=== PATIENT | male | born 1980 | race Caucasian/White ===

== ENCOUNTER 2017-08-25 08:58 | Emergency (ER) | payer OTHER, BC ==
[~2017-08-25] VITALS: Ht 188 cm; Wt 208.0 kg
[2017-08-25 09:13] VITALS: TEMP 36.8; Ht 188 cm; Wt 208.0 kg
--- NOTE | 2017-08-25 10:16 | EMERGENCY ROOM VISIT NOTE ---
History Report prepared by Ines: Kannan Knutson Under the Supervision of: Dr. Don Styles M.D. First contact with patient: 09:33 Chief Complaint: LEG PAIN,LEG INJURY Stated Complaint: PAIN IN LEFT LEG History of Present Illness The patient is a 36 year old white male with a past medical history of left ACL reconstruction surgery who presents to the ED with a cc of left lower extremity pain beginning about 1 week ago. Positive left ankle and foot pain. Negative loss of consciousness, headache, head trauma, fevers, chills, chest pain, shortness of breath, nausea, vomiting, abdominal pain, diarrhea, weakness, or numbness. About 1 week ago, the patient was at work and accidentally got his leg caught in some iron framework causing him to fall backward and twist his leg. He did not hit his head or lose consciousness. He then began to have some bruising and swelling to his left leg, ankle, and foot which worsened recently. He has been using ice and pain medications to try to relieve his pain. His pain is exacerbated with movement. Source of History: patient Onset: 1 week ago Position: leg Symptom Intensity: moderate Quality: ache Timing: worsening Modifying Factors (Worsening): movement Associated Symptoms: No LOC, No fevers, No chills, No headache, No chest pain, No SOB, No nausea, No vomiting, No abdominal pain, No diarrhea, No weakness, No numbness Note: He is also having some left foot and ankle pain. Review of Systems See HPI for pertinent positives and negatives. A total of ten systems were reviewed and were otherwise negative. Past Medical & Surgical Medical Problems: (1) No pertinent past medical history Family History Patient reports no known family medical history. Social History Smoking Status: Current Some Day Smoker Alcohol Use: none Drug Use: none Housing Status: lives with family Occupation Status: employed Current/Historical Medications No Active Prescriptions or Reported Meds Allergies Coded Allergies: Amoxicillin (Verified Adverse Reaction, Intermediate, N/V, 08/25/17) Physical Exam Vital Signs Date Time Temp Pulse Resp B/P (MAP) Pulse Ox O2 Delivery O2 Flow Rate FiO2 08/25/17 12:24 82 18 134/81 96 08/25/17 10:36 84 18 150/74 95 Room Air 08/25/17 09:13 36.8 81 18 162/102 97 Room Air Physical Exam GENERAL: Awake, alert, well-appearing, NAD HENT: Normocephalic, atraumatic. EYES: Normal conjunctiva. Sclera non-icteric. NECK: Supple. No nuchal rigidity. FROM. RESPIRATORY: CTAB, no rhonchi, wheezing, crackles CARDIAC: RRR, no MRG ABDOMEN: Soft, NTND, BS+ MSK: No chest wall TTP. Anterior incisional scar over the left way. Mild left sided medial TTP over the medial malleolus. Swelling the left ankle. DP pulses are present. NVI to the SP, DP, and Tib nerves. NEURO: GCS 15, CN 2-12 intact, moves all 4s on command SKIN: No rash or jaundice noted. Medical Decision & Procedures ER Provider Diagnostic Interpretation: Radiology results as stated below per my review and radiologist interpretation: L TIBIA/FIBULA 2 VIEWS ROUTINE CLINICAL HISTORY: 36 years-old Male presenting with fall 1 week prior, significant ankle swelling, NVI. TECHNIQUE: Frontal and lateral views of the left lower leg were obtained. COMPARISON: None. FINDINGS: Diffuse subcutaneous edema suggested. Evidence of prior anterior cruciate ligament repair. No acute fracture or malalignment. Degenerative changes noted at the knee. The distal tibia and fibula are visualized on ankle radiographs. IMPRESSION: 1. No acute osseous injury of the left lower leg. 2. Significant subcutaneous edema. Electronically signed by: Aguila Meneses M.D. 08/25/2017 11:04 AM Dictated Date/Time: 08/25/2017 11:03 AM L ANKLE MIN 3 VIEWS ROUTINE CLINICAL HISTORY: fall 1 week prior, significant ankle swelling, NVI COMPARISON: Left ankle radiographs March 03, 2014. FINDINGS: Alignment of the left ankle is anatomic. There is no acute fracture. Irregularity of the fibular tip and ossicles along the medial malleolus are similar to exam of March 03, 2014. Talar dome is intact. 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 There is marked ankle soft tissue swelling. IMPRESSION: 1. No acute fracture or dislocation of the left ankle. 2. Marked ankle soft tissue swelling. Electronically signed by: Jesús Peterson M.D. 08/25/2017 11:01 AM Dictated Date/Time: 08/25/2017 10:59 AM ED Course 0933: The patient was evaluated in room B6. A complete history and physical exam was performed. 1152: I reevaluated the patient. Discussed results and discharge instructions: He verbalized understanding and agreement. The patient is ready for discharge. Medical Decision The patient is a 36 year old white male with a past medical history of left ACL reconstruction surgery who presents to the ED with a cc of left lower extremity pain beginning about 1 week ago. Positive left ankle and foot pain. Negative loss of consciousness, headache, head trauma, fevers, chills, chest pain, shortness of breath, nausea, vomiting, abdominal pain, diarrhea, weakness, or numbness. Differential diagnosis: Etiologies such as fracture, dislocation, neurovascular compromise, compartment syndrome, soft tissue injury, as well as others were entertained. Patient was seen and evaluated at the bedside. Patient had a fall where he got his left lower extremity stuck between 2 small pieces of framework and then fell. Patient was able to walk thereafter. Patient has had some notable swelling that has worsened over the last several days. Patient has been able to ambulated. Patient's pain is fairly unremarkable. Patient did take an oxycodone this morning. Patient does have some swelling and some mild pain to the medial malleolus. Patient has no audible fracture seen on plain films. Patient is able tolerate inhalation. Patient was given an Wes wrap as well as a gel splint. Patient was told to continue rest, ice, compression, and elevation. Patient was also told to continue Motrin Tylenol. Patient was told that if he had persistent symptoms or difficulty with work he is to follow-up with his PCP for further evaluation and treatment. Counseled on smoking cessation. Patient was deemed suitable for outpatient follow-up and treatment at this time. Patient was given strict follow-up, discharge, and return precautions. All questions were answered. Patient was deemed suitable for outpatient follow-up at this time. Patient agreed with the plan of care and was safely discharged home. Medication Reconcilliation Current Medication List: was personally reviewed by me Blood Pressure Screening Patient's blood pressure: Elevated blood pressure Blood pressure disposition: Referred to PCP Impression Primary Impression: Left ankle sprain Additional Impression: Encounter for smoking cessation counseling Scribe Attestation The scribe's documentation has been prepared under my direction and personally reviewed by me in its entirety. I confirm that the note above accurately reflects all work, treatment, procedures, and medical decision making performed by me. Departure Information Dispostion Home / Self-Care Prescriptions No Active Prescriptions or Reported Meds Referrals Aguila Rust M.D. (PCP) [facility] Forms HOME CARE DOCUMENTATION FORM, IMPORTANT VISIT INFORMATION Patient Instructions ED RICE, ED Sprain Ankle, My Yamilet Medina Additional Instructions Please return to the emergency department if you have worsening or recurrent symptoms not amenable to at-home treatment. Please call for a follow-up appointment with her primary care physician. Please take your medications as prescribed. If you have other concerns and/or complaints please feel free to also call your primary care physician's office or return the ED for further evaluation, management, and treatment. You were found to have an elevated blood pressure today (>120 sytolic or >90 diastolic). Per medicare guidelines, you need to follow up with this blood pressure screening with your Primary Care Physician (PCP). For a new PCP call [phone]. You may take 600 mg Ibuprofen every 6 hours as needed for pain with food. You may take tylenol 1000 mg every 6 hours as needed for pain. You may take motrin and tylenol separately or at the same time. Take your medications as prescribed. You have been examined and treated today on an emergency basis only. This is not a substitute for, or an effort to provide, complete comprehensive medical care. It is impossible to recognize and treat all injuries or illnesses in a single emergency department visit. It is therefore important that you follow up closely with [facility], your PCP, and/or your specialist(s). Call as soon as possible for an appointment. Thank you for your time and consideration. I look forward to speaking with you again soon. Please don't hesitate to call us if you have any questions. Problem Qualifiers Primary Impression: Left ankle sprain Encounter type: initial encounter Involved ligament of ankle: unspecified ligament Qualified Codes: S93.402A - Sprain of unspecified ligament of left ankle, initial encounter
--- NOTE | 2017-08-25 11:03 | DIAGNOSTIC IMAGING REPORT ---
L ANKLE MIN 3 VIEWS ROUTINE CLINICAL HISTORY: fall 1 week prior, significant ankle swelling, NVI COMPARISON: Left ankle radiographs March 03, 2014. FINDINGS: Alignment of the left ankle is anatomic. There is no acute fracture. Irregularity of the fibular tip and ossicles along the medial malleolus are similar to exam of March 03, 2014. Talar dome is intact. 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 There is marked ankle soft tissue swelling. IMPRESSION: 1. No acute fracture or dislocation of the left ankle. 2. Marked ankle soft tissue swelling. Electronically signed by: Jesús Peterson M.D. 08/25/2017 11:01 AM Dictated Date/Time: 08/25/2017 10:59 AM
--- NOTE | 2017-08-25 11:06 | DIAGNOSTIC IMAGING REPORT ---
L TIBIA/FIBULA 2 VIEWS ROUTINE CLINICAL HISTORY: 36 years-old Male presenting with fall 1 week prior, significant ankle swelling, NVI. TECHNIQUE: Frontal and lateral views of the left lower leg were obtained. COMPARISON: None. FINDINGS: Diffuse subcutaneous edema suggested. Evidence of prior anterior cruciate ligament repair. No acute fracture or malalignment. Degenerative changes noted at the knee. The distal tibia and fibula are visualized on ankle radiographs. IMPRESSION: 1. No acute osseous injury of the left lower leg. 2. Significant subcutaneous edema. Electronically signed by: Aguila Meneses M.D. 08/25/2017 11:04 AM Dictated Date/Time: 08/25/2017 11:03 AM
[2017-08-25 12:24] VITALS: BP 134/81; PULSE 82; O2SAT 96
== END 2017-08-25 12:25 | disposition home or self-care (01) ==
LOC: C.EDB 08:59
DX: S93.402A Sprain of unspecified ligament of left ankle, initial encounter (principal); W19.XXXA Unspecified fall, initial encounter; Y92.89 Other specified places as the place of occurrence of the external cause; Y99.0 Civilian activity done for income or pay; Z71.6 Tobacco abuse counseling; F17.210 Nicotine dependence, cigarettes, uncomplicated; Z88.1 Allergy status to other antibiotic agents

== ENCOUNTER → 2018-03-04 | Outpatient (CLI) | payer BC ==
[~2018-03-04] MED LIST: ASPECOTC PO; IBUP-1050 PO; OXYC-737 PO
--- NOTE | 2018-03-04 17:36 | DIAGNOSTIC IMAGING REPORT ---
KUB CLINICAL HISTORY: 37 years-old Male presenting with N20.1 Ureteral stone R39.9 Urinary symptom or sign, history of kidney stones, currently asymptomatic. TECHNIQUE: Single supine view of the abdomen was obtained. COMPARISON: 01/29/[address] from 01/27/2018. FINDINGS: Nonobstructive bowel gas pattern. No gross pneumoperitoneum. Stable calculus at the lower pole the right kidney. Calcification now evident in the right pelvis consistent with progression of the known right ureteral calculus into the distal right ureter. No radiographic evidence of left renal calculi. Degenerative changes of the spine. Lung bases clear. IMPRESSION: 1. Progression of the right ureteral calculus to the distal right ureter. 2. Additional right renal calculus. Electronically signed by: Aguila Meneses M.D. 03/04/2018 5:34 PM Dictated Date/Time: 03/04/2018 5:29 PM
== END | disposition home or self-care (01) ==
LOC: C.RAD 16:58
PROVIDERS: ATTEND Urology
DX: N20.1 Calculus of ureter (principal); R39.9 Unspecified symptoms and signs involving the genitourinary system; N20.0 Calculus of kidney